=== PATIENT | female | born 1940 | race Caucasian/White ===

== ENCOUNTER 2023-12-03 19:47 | Emergency (ER) | payer SELFPAY ==
[2023-12-03 19:51] VITALS: BP 152/90
--- NOTE | 2023-12-03 21:00 | ED.GENMED ---
History of Present Illness
<Juan Peña MD, Resident - Last Filed: 12/03/23 23:58>
General
Chief Complaint: Skin Surface Trauma
Source: patient
Time Seen by Provider: 12/03/23 20:42
History of Present Illness
History of Present Illness:
89-year-old female, Ms. Sinai Yee presented to the ER to get her open wound on her left lower extremity checked, as she thinks it might have been infected. Patient reports she bumped into coffee table 5 days ago, and developed open wound on the
anterior aspect of the left leg. Patient did not develop any swelling around that area, has very minimal pain, no purulent discharge, no fevers. No history of diabetes, peripheral arterial disease. Patient is on Eliquis for A-fib.
Review of Systems
<Juan Peña MD, Resident - Last Filed: 12/03/23 23:58>
Review of Systems
All Other Systems: ROS reviewed and negative except as documented in HPI and ROS
Phy Exam
<Juan Peña MD, Resident - Last Filed: 12/03/23 23:58>
Physical Exam
Physical Exam:
GEN: Well appearing, NAD, WDWN
Eyes: PERRLA, EOMs intact, no scleral icterus
HENT: NCAT, oral mucosa moist, no JVD, no cervical adenopathy.
Lungs: CTAB, no wheezes, rales, rhonchi, normal chest wall excursion
Cardiac: RRR, S1 S2+, no peripheral edema. Radial pulses 2+ bilat
Abdomen: S, NT, ND, NABS, no masses or hepatosplenomegaly
Neuro: AO x 3, no focal deficits to BUE/BLE, normal sensation throughout
Skin: Right lower extremity skin tear of size 1.5 X1 inch, with minor surrounding bruising, no purulent discharge. Peripheral pulses 2+
Psych: Calm, cooperative, proper hygiene
Course
<Juan Peña MD, Resident - Last Filed: 12/03/23 23:58>
Vital Signs
Initial and Last Documented VS:
Initial Vital Signs
Temp Pulse Resp BP Pulse Ox
99.4 F 89 18 152/90 96
12/03/23 19:51 12/03/23 19:51 12/03/23 19:51 12/03/23 19:51 12/03/23 19:51
Last Documented Vital Signs
Temp Pulse Resp BP Pulse Ox
99.4 F 78 16 148/89 97
12/03/23 19:51 12/03/23 21:22 12/03/23 21:22 12/03/23 21:22 12/03/23 21:22
<Maria De Jesus Gamez MD - Last Filed: 12/03/23 21:17>
Vital Signs
Initial and Last Documented VS:
Initial Vital Signs
Temp Pulse Resp BP Pulse Ox
99.4 F 89 18 152/90 96
12/03/23 19:51 12/03/23 19:51 12/03/23 19:51 12/03/23 19:51 12/03/23 19:51
Last Documented Vital Signs
Temp Pulse Resp BP Pulse Ox
99.4 F 78 16 148/89 97
12/03/23 19:51 12/03/23 21:22 12/03/23 21:22 12/03/23 21:22 12/03/23 21:22
<Juan Peña MD, Resident - Last Filed: 12/03/23 23:58>
MDM/Problems Addressed
Differential Diagnosis Includes:
Skin tear
MDM/Problems Addressed:
There are no signs of infection in and around the region of wound.
Patient is afebrile, vitals are stable. Elevated BP at 152/90.
Regular wound care.
Apply mupirocin/bacitracin cream.
Patient is stable to be discharged home.
<Juan Peña MD, Resident - Last Filed: 12/03/23 23:58>
*Critical Care Note
Total Time (30-74mins, 75-104mins- exclusive of procedures): Not Applicable
ED Attending Note
<Juan Peña MD, Resident - Last Filed: 12/03/23 23:58>
-
Portions of this chart may have been created with voice recognition software.� Occasional wrong word or��sound alike� substitutions may have occurred due to the inherent limitations of voice recognition software.
<Maria De Jesus Gamez MD - Last Filed: 12/03/23 21:17>
ED Attending Note
Patient seen and examined by attending physician: Yes
I performed a history and physical exam of patient and discussed management with resident, I reviewed resident's note and agree with documented findings and plan of care.: Yes
ED Attending Note:
Patient is a 89-year-old woman with history of A-fib on anticoagulation presenting to the emergency department for a wound check. Patient states that on 5 days ago she bumped her hernández and developed a skin tear. Her daughter was afraid that it
might be infected so they came to the emergency department for further evaluation as her insurance will not accepted at an urgent care. She denies any fevers or chills. No numbness tingling. No drainage. No weakness. She states that it appears
bruised but is more red than her usual bumps.
Vitals are notable for being afebrile.
GENERAL: in no acute distress
HEENT: normocephalic, extraocular movements intact, moist oral mucosa
NECK: normal inspection
RESPIRATORY: no respiratory distress
CARDIOVASCULAR: regular rate and rhythm
EXTREMITIES: Right lower extremity with skin tear over anterior hernández about 1.5 cm. Bleeding is controlled. Underlying ecchymosis. No warmth. No drainage. Distal pulses
NEUROLOGIC: awake and alert, moves all extremities
SKIN: warm
89-year-old woman with history of A-fib on anticoagulation presenting to the emergency department with concerns for wound check. Vitals are unremarkable and exam does show a skin tear to the right lower anterior hernández with associated ecchymosis. No
erythema edema warmth or tenderness. No crepitus. History and exam is not consistent with infection. Educated patient on the importance of cleaning the wound and keeping it clean and dry. Strict return precautions given. All questions answered.
Patient stable for discharge.
Discharge Plan
Departure
Patient Disposition: Home (Routine Discharge)
Date of Disposition: 12/03/23
Time of Disposition: 21:17
Patient with high blood pressure during this ER visit?: Yes
Condition: Good
Discharge Problem:
Skin tear
Instructions: Wound Care (DC), BLOOD PRESSURE
Activity Restrictions/Additional Instructions:
Advised follow-up with primary care as needed if she develops fever, any swelling around the region of the wound.
Regular dressing.
Interventions
Interventions:
*Risk Screen - Suicide Last Done: 12/03/23 19:51
*General Assessment Last Done: 12/03/23 19:51
*Neglect/Abuse Screening Last Done: 12/03/23 19:51
ED- Fall Risk Assessment Last Done: 12/03/23 21:23
*ED COVID-19 Vaccine History Last Done: 12/03/23 19:51
*Nursing Disposition Last Done: 12/03/23 21:23
ED-Skin Assessment Last Done: 12/03/23 20:44
Discharge Date and Time
Discharge Date/Time: 12/03/23 21:24
Print Language: SCOTTISH
[2023-12-03 21:22] VITALS: BP 148/89
== END 2023-12-03 21:24 | disposition home or self-care (01) ==
LOC: EMR 19:47
PROVIDERS: EMERGENCY PHYSICIAN Student in an Organized Health Care Education/Training Program; FAMILY PHYSICIAN Family Medicine
DX: S81.802A Unspecified open wound, left lower leg, initial encounter (principal); X58.XXXA Exposure to other specified factors, initial encounter; I48.91 Unspecified atrial fibrillation
CPT/HCPCS: 99282

== ENCOUNTER → 2024-05-22 15:55 | Outpatient (REF) | payer OTHER, SELFPAY | LOC: RAD 15:55 | PROVIDERS: ATTENDING PHYSICIAN Family Medicine | DX: J84.9 Interstitial pulmonary disease, unspecified (principal) | CPT/HCPCS: 71046 ==